=== PATIENT | female | born 1945 | race Caucasian/White ===

== ENCOUNTER → 2018-08-11 | Outpatient (CLI) | payer MEDICARE, OTHER ==
[~2018-08-11] MED LIST: GLIM2 PO; LEVSOD50 PO; LOSARTAN POTAS100 MG PO
== END | disposition home or self-care (01) ==
LOC: PLD 14:09 → LAB SHORT 14:09
DX: L82.1 Other seborrheic keratosis (principal)
CPT/HCPCS: 88305

== ENCOUNTER 2019-07-26 06:43 | Day surgery (SDC) | payer MEDICARE, OTHER ==
[~2019-07-26] VITALS: Ht 185.4 cm; Wt 80.7 kg
--- NOTE | 2019-07-26 07:27 | NUR ---
07/26/19 0727 Paola Jerry 1 IV MISS IN RH B7Y DAYAN VALVE 1 GOOD IV IN RH BY DAYAN PT TOW
== END 2019-07-26 08:57 | disposition home or self-care (01) ==
LOC: ORSCSDS 06:43
PROVIDERS: Internal Medicine Gastroenterology
PROC: 0D757ZZ Dilation of Esophagus, Via Natural or Artificial Opening (ICD-10-PCS; 2019-07-26)
PROC: 0DB38ZX Excision of Lower Esophagus, Via Natural or Artificial Opening Endoscopic, Diagnostic (ICD-10-PCS; principal; 2019-07-26 08:00)
PROC: 0DB18ZX Excision of Upper Esophagus, Via Natural or Artificial Opening Endoscopic, Diagnostic (ICD-10-PCS; principal; 2019-07-26 08:00)
PROC: 0DB68ZX Excision of Stomach, Via Natural or Artificial Opening Endoscopic, Diagnostic (ICD-10-PCS; principal; 2019-07-26 08:00)
DX: R10.13 Epigastric pain (principal); R13.10 Dysphagia, unspecified; K22.2 Esophageal obstruction; K44.9 Diaphragmatic hernia without obstruction or gangrene; E11.9 Type 2 diabetes mellitus without complications; I10 Essential (primary) hypertension; Z79.899 Other long term (current) drug therapy
CPT/HCPCS: 82947; 88305; 88342; J0330; J0461; J2001; J2405; J2704; J7120

== ENCOUNTER 2020-01-31 07:42 | Day surgery (SDC) | payer MEDICARE, OTHER ==
[~2020-01-31] VITALS: Ht 157.5 cm; Wt 72.7 kg
[~2020-01-31 07:42] MED LIST changes: +TRAM50 PO
--- NOTE | 2020-01-31 08:36 | NUR ---
01/31/20 0836 Violette Mansfield 1ST IV ATTEMPT IN RFA, STARTED BY DAYAN KERNS 2ND IV ATTEMPT IN RAC, STARTED BY DAYAN KERNS 3RD IV ATTEMPT IN RW, STARTED BY MADDY CONTRERAS 4TH IV ATTEMPT IN LAC, 22 GAUGE PLACED, STARTED BY MADDY CONTRERAS
== END 2020-01-31 10:04 | disposition home or self-care (01) ==
LOC: ORSCSDS 07:42
PROVIDERS: Internal Medicine Gastroenterology
PROC: 0DBN8ZX Excision of Sigmoid Colon, Via Natural or Artificial Opening Endoscopic, Diagnostic (ICD-10-PCS; principal; 2020-01-31 09:00)
DX: R10.31 Right lower quadrant pain (principal); D12.5 Benign neoplasm of sigmoid colon; K57.30 Diverticulosis of large intestine without perforation or abscess without bleeding; K64.8 Other hemorrhoids; Z86.010 Personal history of colon polyps; Z83.71 Family history of colonic polyps; I10 Essential (primary) hypertension; E11.9 Type 2 diabetes mellitus without complications; E07.9 Disorder of thyroid, unspecified; Z79.84 Long term (current) use of oral hypoglycemic drugs; Z79.899 Other long term (current) drug therapy
CPT/HCPCS: 82947; 88305; J2405; J2704; J7120

== ENCOUNTER → 2020-12-19 | Outpatient (CLI) | payer MEDICARE, OTHER | END | disposition home or self-care (01) | LOC: LAB SHORT 09:53 → LAB 09:53 | DX: L82.1 Other seborrheic keratosis (principal) | CPT/HCPCS: 88305 ==

== ENCOUNTER 2021-08-08 06:49 | Day surgery (SDC) | payer MEDICARE, OTHER ==
[~2021-08-08] VITALS: Ht 157.5 cm; Wt 87.3 kg
== END 2021-08-08 09:07 | disposition home or self-care (01) ==
LOC: ORSCSDS 06:49
PROVIDERS: Internal Medicine Gastroenterology
PROC: 0D758ZZ Dilation of Esophagus, Via Natural or Artificial Opening Endoscopic (ICD-10-PCS; principal; 2021-08-08 08:00)
DX: R13.10 Dysphagia, unspecified (principal); K22.2 Esophageal obstruction; K44.9 Diaphragmatic hernia without obstruction or gangrene; E11.9 Type 2 diabetes mellitus without complications; Z79.899 Other long term (current) drug therapy
CPT/HCPCS: 82947; C1726; J2704; J7120

== ENCOUNTER 2022-10-16 08:04 | Day surgery (SDC) | payer OTHER ==
[~2022-10-16] VITALS: Ht 157.5 cm; Wt 84.5 kg
[2022-10-16 10:40] VITALS: BP 127/61
== END 2022-10-16 10:43 | disposition home or self-care (01) ==
LOC: ORSCSDS 08:04
PROVIDERS: Internal Medicine Gastroenterology
PROC: 0D758ZZ Dilation of Esophagus, Via Natural or Artificial Opening Endoscopic (ICD-10-PCS; principal; 2022-10-16 09:30)
DX: R13.10 Dysphagia, unspecified (principal); K22.2 Esophageal obstruction; K21.9 Gastro-esophageal reflux disease without esophagitis; K44.9 Diaphragmatic hernia without obstruction or gangrene; I10 Essential (primary) hypertension; E11.9 Type 2 diabetes mellitus without complications; E03.9 Hypothyroidism, unspecified; Z79.899 Other long term (current) drug therapy; Z79.84 Long term (current) use of oral hypoglycemic drugs
CPT/HCPCS: 82947; C1726; J2704; J7120

== ENCOUNTER → 2022-12-10 | Outpatient (CLI) | payer OTHER | END | disposition home or self-care (01) | LOC: LAB 12:45 → LAB SHORT 12:45 | DX: R30.0 Dysuria (principal) | CPT/HCPCS: 87086 ==

== ENCOUNTER → 2023-04-07 | Outpatient (CLI) | payer OTHER ==
[2023-04-07 17:34] LABS: Creatinine Urine 81.3 mg/dL (27.00-270.00); Protein, Urine Quantitative 8.3 mg/dL (0.0-11.9)
== END | disposition home or self-care (01) ==
LOC: LAB 10:50 → LAB SHORT 10:50
PROVIDERS: Internal Medicine Nephrology
DX: N18.30 Chronic kidney disease, stage 3 unspecified (principal); D63.1 Anemia in chronic kidney disease
CPT/HCPCS: 81050; 82108; 82570; 84156

== ENCOUNTER 2023-08-07 10:21 | Day surgery (SDC) | payer OTHER ==
[~2023-08-07] VITALS: Ht 154.9 cm; Wt 85.0 kg
[2023-08-07] MEDS ORDERED: AMLODIPINE-OLM1 EAC2 (10:50)
[2023-08-07 13:09] VITALS: BP 126/87
== END 2023-08-07 13:00 | disposition home or self-care (01) ==
LOC: ORSCSDS 10:21
PROVIDERS: Internal Medicine Gastroenterology
PROC: 0D758ZZ Dilation of Esophagus, Via Natural or Artificial Opening Endoscopic (ICD-10-PCS; principal; 2023-08-07 12:00)
DX: K21.00 Gastro-esophageal reflux disease with esophagitis, without bleeding (principal); K22.2 Esophageal obstruction; K64.4 Residual hemorrhoidal skin tags; Z79.899 Other long term (current) drug therapy
CPT/HCPCS: 82947; C1726; J2704; J7120

== ENCOUNTER 2024-08-08 06:11 | Day surgery (SDC) | payer OTHER ==
[~2024-08-08] VITALS: Ht 152.4 cm; Wt 81.7 kg
[~2024-08-08 06:11] MED LIST changes: +AMLODIPINE-OLM1 EAC2; +Lidocaine 1%-Epineph 1:100000 20 ML MDV ONE; +Sodium Bicarb 8.4% 1 MEQ/ML 50 ML Vial ONE
[2024-08-08] MEDS ORDERED: CeFAZolin Sodium 2,000 MG VIAL ONE (06:20)
[2024-08-08] MEDS ORDERED: NS 500 ML IV ONE ×2 (06:20→06:48)
[2024-08-08] MEDS ORDERED: PRED20 PO (06:40)
[2024-08-08] MEDS ORDERED: LOSA50 PO (06:40)
[2024-08-08] MEDS ORDERED: NS 50 ML IV ONE (07:11)
--- NOTE | 2024-08-08 07:11 | NUR ---
08/08/24 0711 Jane Trimble TIME OUT PERFORMED AT BEDSIDE WITH DR JOSEPH AT 0705 IMMEDIATELY PRIOR TO INJECTION OF 9ML OF 10ML SOLUTION CONTAINING 9ML LIDOCAINE 1% WITH EPI [id number] AND 1ML 8.4% SODIUM BICARBONATE. INJECTION IN TO L HAND. PT TOLERATED PROCEDURE WELL.
[2024-08-08 08:16] VITALS: BP 159/64
== END 2024-08-08 08:11 | disposition home or self-care (01) ==
LOC: ORSCSDS 06:11
PROVIDERS: Orthopaedic Surgery
PROC: 01N54ZZ Release Median Nerve, Percutaneous Endoscopic Approach (ICD-10-PCS; principal; 2024-08-08 07:30)
DX: G56.02 Carpal tunnel syndrome, left upper limb (principal); E11.9 Type 2 diabetes mellitus without complications; I10 Essential (primary) hypertension; E78.5 Hyperlipidemia, unspecified; Z79.899 Other long term (current) drug therapy
CPT/HCPCS: 82947; J0690; J7040